=== PATIENT | male | born 1945 | race Two or more races ===

== ENCOUNTER 2024-09-03 08:50 | Inpatient (IN) | payer OTHER ==
[~2024-09-03] VITALS: Ht 175.3 cm; Wt 67.3 kg
--- NOTE | 2024-09-03 09:06 | ED.PDOC ---
History of Present Illness HPI Comments 78Y M with PMHx liver CA presents to ED for chief complaint abnormal labs. Pt states he had blood drawn yesterday and later in the evening received a call from doctor's office stating that his K+ was 6.0 and Calcium was 13.5. Pt has been feeling fatigued for 2 months and says he becomes very tired after walking 50 steps. Pt is currently undergoing chemotherapy for liver CA that has metastasized to the multiple bone sites (scapula, clavicle, femur, spine, etc). Time Seen by MD: 08:58 Reviewed Notes: Medications, Allergies Information Source: Patient, Spouse Mode of Arrival: Ambulatory Severity: Moderate Timing: Months Duration: Since onset Past Medical History PAST MEDICAL HISTORY: Cancer, CKF Surgical History: Unknown Family History Family History: Unknown Social History Smoker: Non-Smoker Alcohol: Denies ETOH Use Drugs: Denies Drug Use Lives In: Home Constitutional: reports: fatigue; denies: chills, diaphoresis, fever, malaise, sweats, weakness, others EENTM: denies: blurred vision, double vision, ear bleeding, ear discharge, ear drainage, ear pain, ear ringing, eye pain, eye redness, hearing loss, mouth pain, mouth swelling, nasal discharge, nose bleeding, nose congestion, nose pain, photophobia, tearing, throat pain, throat swelling, voice changes, others Respiratory: denies: cough, hemoptysis, orthopnea, SOB at rest, shortness of breath, SOB with excertion, stridor, wheezing, others Cardiovascular: denies: chest pain, dizzy spells, diaphoresis, Dyspnea on exertion, edema, irregular heart beat, left arm pain, lightheadedness, palpitations, PND, syncope, others Gastrointestinal: denies: abdomen distended, abdominal pain, blood streaked bowels, constipated, diarrhea, dysphagia, difficulty swallowing, hematemesis, melena, nausea, poor appetite, poor fluid intake, rectal bleeding, rectal pain, vomiting, others Genitourinary: denies: burning, dysuria, flank pain, frequency, hematuria, incontinence, penile discharge, penile sore, pain, testicle pain, testicle swelling, urgency, others Neurological: denies: dizziness, fainting, headache, left sided numbness, left sided weakness, numbness, paresthesia, pre-existing deficit, right sided numbness, right sided weakness, seizure, speech problems, tingling, tremors, weakness, others Musculoskeletal: denies: back pain, gout, joint pain, joint swelling, muscle pain, muscle stiffness, neck pain, others Integumetry: denies: bruises, change in color, change in hair/nails, dryness, laceration, lesions, lumps, rash, wounds, others Allergic/Immunocompromised: denies: Difficulty Healing, Frequent Infections, Hives, Itching, others Hematologic/Lymphatic: denies: anemia, blood clots, easy bleeding, easy bruising, swollen glands, others Endocrine: denies: excessive hunger, excessive sweating, excessive thirst, excessive urination, flushing, intolerance to cold, intolerance to heat, unexplained weight gain, unexplained weight loss, others Psychiatric: denies: anxiety, bipolar disorder, depression, hopeless, panic disorder, schizophrenia, sleepless, suicidal, others All Other Systems: Reviewed and Negative Physical Exam General Appearance: No Apparent Distress, Normal HEENT: Normal ENT Inspection, Pharynx Normal, TMs Normal Neck: Full Range of Motion, Non-Tender, Normal, Normal Inspection Respiratory: Chest Non-Tender, Lungs Clear, No Accessory Muscle Use, No Respiratory Distress, Normal Breath Sounds Cardiovascular: No Edema, No JVD, No Murmur, No Gallop, Normal Peripheral Pulses, Regular Rate/Rhythm Breast Exam: Deferred Gastrointestinal: No Organomegaly, Non Tender, No Pulsatile Mass, Normal Bowel Sounds, Soft Genitalia: Deferred Pelvic: Deferred Rectal: Deferred Extremities: No calf tenderness, Normal capillary refill, Normal inspection, Normal range of motion, Non-tender, No pedal edema Musculoskeletal : Apperance: Normal Neurologic: Alert, thread pulling machine attendant II-XII nml as Tested, No Motor Deficits, Normal Affect, Normal Mood, No Sensory Deficits Cerebellar Function: Normal Reflexes: Normal Skin: Dry, Normal Color, Warm Lymphatic: No Adenopathy Was a procedure done? Was a procedure done?: No Differential Dx Considerations may include: hypercalcemia, renal failure, dehydration, hyperkalemia, hyperparathyroidism, milk alkali syndrome, paraneoplastic syndrome X-Ray, Labs, Meds, VS Vital Signs Date Time Temp Pulse Resp B/P (MAP) Pulse Ox O2 Delivery O2 Flow Rate FiO2 09/03/24 10:57 97.9 90 16 124/73 (90) 98 97.9 09/03/24 10:56 90 16 98 Room Air 09/03/24 09:13 105 09/03/24 09:12 97.4 117 18 193/88 (123) 98 Lab Test 09/03/24 09:30 Range/Units White Blood Count 10.7 4.4-10.8 10^3/uL Red Blood Count 4.71 4.5-5.90 10^6/uL Hemoglobin 13.3 L 13.5-17.5 g/dL Hematocrit 39.9 L 41.0-53.0 % Mean Corpuscular Volume 84.6 80.0-100.0 fL Mean Corpuscular Hemoglobin 28.1 28.0-32.0 pg Mean Corpuscular Hemoglobin Concent 33.3 32.0-36.0 g/dL Red Cell Distribution Width 16.6 H 11.8-14.3 % Platelet Count 162 140-450 10^3/uL Mean Platelet Volume 8.0 6.9-10.8 fL Neutrophils (%) (Auto) 83.8 H 37.0-80.0 % Lymphocytes (%) (Auto) 5.9 L 10.0-50.0 % Monocytes (%) (Auto) 9.9 0.0-12.0 % Eosinophils (%) (Auto) 0.3 0.0-7.0 % Basophils (%) (Auto) 0.1 0.0-2.0 % Neutrophils # (Auto) 9.0 H 1.6-8.6 10 ^3/uL Lymphocytes # (Auto) 0.6 0.4-5.4 10 ^3/uL Monocytes # (Auto) 1.1 0-1.3 10 ^3/uL Eosinophils # (Auto) 0 0-0.8 10 ^3/uL Basophils # (Auto) 0 0-0.2 10 ^3/uL Nucleated Red Blood Cells 0.1 % Sodium Level 135 L 136-145 mmol/L Potassium Level 5.1 3.5-5.1 mmol/L Chloride Level 106 98-107 mmol/L Carbon Dioxide Level 21 20-31 mmol/L Anion Gap 8 5-15 Blood Urea Nitrogen 28 H 9-23 mg/dL Creatinine 1.41 H 0.700-1.30 mg/dL Glomerular Filtration Rate Calc 52 >90 mL/min BUN/Creatinine Ratio 19.9 10.0-20.0 Serum Glucose 148 H 74-106 mg/dL Calcium Level 13.5 *H 8.7-10.4 mg/dL Total Bilirubin 0.9 0.2-1.0 mg/dL Aspartate Amino Transferase (AST) 63 H 13-40 U/L Alanine Aminotransferase (ALT) 64 H 7-40 U/L Alkaline Phosphatase 578 H 46-116 U/L Total Protein 6.5 5.7-8.2 g/dL Albumin 4.1 3.2-4.8 g/dL Time of 1ST Reevaluation: 09:28 Reevaluation 1ST: Unchanged Time of 2ND Reevaluation: 12:04 Reevaluation 2ND: Unchanged Patient Education/Counseling: Diagnosis, Treatment, Prognosis, Need For Follow Up Family Education/Counseling: Diagnosis, Treatment, Prognosis, Need For Follow Up Additional Information Tests ordered and results reviewed: CBC, CMP Independent historians include: Spouse. Dr. Mast interpreted each of the tests and agrees with the result. Results and treatment discussed with the pt/family members and medical personnel. pt has symptomatic hypercalcemia. his calcium is just shy of 14, so he will need admission, monitoring for worsening, and arrhythmias, and need ivf Departure 1 Departure Time of Disposition: 12:07 Impression: Primary Impression: Hypercalcemia of malignancy Additional Impression: Generalized weakness Disposition: ADMITTED INPATIENT Admit to: Tele Condition: Serious Critical Care Note Critical Care Time?: Yes (45 min-critical care time only) Critical care comment: due to the real possibility of patient's condition deteriorating, his care requires my highest attention and readiness to intervene. i assessed the patient, ordered the proper tests and treatments, reassessed him for response, formulated a plan, discussed it with medical personnel, and consultants,. total time include more than 50% face to face contact and does not include any procedures. 45 minutes of cc time Stability Stability form required: No I personally scribed for CURT MAST MD ([email or web address]) on 09/03/24 at 09:06. Electronically submitted by Floresita Andujar ([email or web address]). CURT MAST MD Sep 03, 2024 09:06
[2024-09-03 09:58] LABS: Basophils # (auto) 0 10 ^3/uL (0-0.2); Basophils % (auto) 0.1 % (0.0-2.0); Eosinophils # (auto) 0 10 ^3/uL (0-0.8); Eosinophils % (auto) 0.3 % (0.0-7.0); Hematocrit 39.9 % (41.0-53.0); Hemoglobin 13.3 g/dL (13.5-17.5); Lymphocytes # (auto) 0.6 10 ^3/uL (0.4-5.4); Lymphocytes % (auto) 5.9 % (10.0-50.0); Mean Corpuscular Hemoglobin 28.1 pg (28.0-32.0); Mean Corpuscular Hgb Conc. 33.3 g/dL (32.0-36.0); Mean Corpuscular Volume 84.6 fL (80.0-100.0); Monocytes # (auto) 1.1 10 ^3/uL (0-1.3); Monocytes % (auto) 9.9 % (0.0-12.0); Neutrophils % (auto) 83.8 % (37.0-80.0); Nucleated Red Blood Cells % 0.1 %; Platelet Count (auto) 162 10^3/uL (140-450); Red Blood Cells 4.71 10^6/uL (4.5-5.90); Red Cell Distribution Width 16.6 % (11.8-14.3); White Blood Cell 10.7 10^3/uL (4.4-10.8)
[2024-09-03 10:13] LABS: Alanine Aminotransferase 64 U/L (7-40); Albumin 4.1 g/dL (3.2-4.8); Alkaline Phosphatase 578 U/L (46-116); Anion Gap 8 (5-15); Aspartate Aminotransferase 63 U/L (13-40); BUN/Creatinine Ratio 19.9 (10.0-20.0); Bilirubin, Total 0.9 mg/dL (0.2-1.0); Blood Urea Nitrogen 28 mg/dL (9-23); Carbon Dioxide 21 mmol/L (20-31); Chloride 106 mmol/L (98-107); Glucose 148 mg/dL (74-106); Potassium 5.1 mmol/L (3.5-5.1); Sodium 135 mmol/L (136-145); Total Protein 6.5 g/dL (5.7-8.2)
[2024-09-03 10:22] LABS: Calcium 13.5 mg/dL (8.7-10.4)
--- NOTE | 2024-09-03 12:04 | ECG ---
[facility] Test Date: 2024-09-03 Test Time: 09:13:02 Pat Name: JOSE DAVID HOGAN Department: ER Room: 0247 Gender: M Community Organization Aide: PAUL : 1945 Requested By: CURT ARRIAGA Order Number: [id number] Reading MD: Will Beckford Measurements Intervals [place] Rate: 105 P: -11 [place]: 173 QRS: -45 QRSD: 97 T: 113 QT: 320 QTc: 423 Interpretive Statements Sinus tachycardia Left anterior fascicular block Abnormal R-wave progression, late transition LVH with secondary repolarization abnormality Electronically Signed On 09-06-2024 8:20:14 PST by Will Beckford Please click the below link to view image of tracing.
[2024-09-03] MEDS ORDERED: MAALOX PLUS or MAALOX 30 ML PO PRN (13:15)
[2024-09-03] MEDS ORDERED: ACETAMINOPHEN 325 MG TAB PO PRN (13:15)
[2024-09-03] MEDS ORDERED: ONDANSETRON HCL 4 MG/2 ML VIAL IV PRN (13:15)
[2024-09-03] MEDS ORDERED: DOCUSATE SOD 100 MG CAP PO PRN (13:15)
[2024-09-03] MEDS ORDERED: LORazepam 0.5 MG TAB PO PRN (13:15)
--- NOTE | 2024-09-03 15:47 | DVHHP2 ---
History of Present Illness Reason for Visit: General weakness History of Present Illness 78 yo with history of cancer and ckd came in for worsening general weakness and abnormal labs outpatient with severe hypercalcemia patient recommended for admission for further evaluation Renal/: Chronic renal insuff Family History: Cancer Review of Systems Constitutional: Yes: Weakness; No: Fever, Chills, Sweats, Malaise, Other Eyes: No: Pain, Vision change, Conjunctivae inflammation, Eyelid inflammation, Other, Redness ENT: No: Ear pain, Ear discharge, Nose pain, Nose discharge, Nose congestion, Mouth pain, Mouth swelling, Throat pain, Throat swelling, Other Respiratory: No: Cough, Dry, Shortness of breath, SOB with excertion, Wheezing, Hemoptysis, Pleuritic Pain, Sputum, Wheezing, Other Cardiovascular: No: Chest Pain, Palpitations, Orthopnea, Paroxysmal Noc. Dyspnea, Edema, Lt Headedness, Other Gastrointestinal: Abdominal Pain; No: Nausea, Vomiting, Diarrhea, Constipation, Melena, Hematochezia, Other Genitourinary: No Dysuria, No Frequency, No Incontinence, No Hematuria, No Retention, No Other Musculoskeletal: No: other, neck pain, shoulder pain, arm pain, back pain, hand pain, leg pain, foot pain Skin: No: Rash, Lesions, Jaundice, Bruising, Other Neurological: No: Weakness, Numbness, Incoordination, Change in speech, Confusion, Seizures, Other Allergies: Coded Allergies: NO KNOWN ALLERGIES (Unverified , 09/03/24) Medications Current Medications Medications Dose Ordered Sig/Stuart Route Start Time Stop Time Status Last Admin Dose Admin Lorazepam 0.5 mg Q6HP PRN PO 09/03/24 13:15 Al Hydrox/Mg Hydrox/Simethicone 30 ml Q6HP PRN PO 09/03/24 13:15 Docusate Sodium 100 mg BIDPRN PRN PO 09/03/24 13:15 Acetaminophen 650 mg Q6HP PRN PO 09/03/24 13:15 Acetaminophen/ Hydrocodone Bitart 1 tab Q4HP PRN PO 09/03/24 13:15 Ondansetron HCl 4 mg Q4HP PRN IV 09/03/24 13:15 Morphine Sulfate 2 mg Q4HPRN PRN IV 09/03/24 13:15 Exam Vital Signs Vital Signs Date Time Temp Pulse Resp B/P (MAP) Pulse Ox O2 Delivery O2 Flow Rate FiO2 09/03/24 12:52 80 17 134/63 (86) 98 09/03/24 10:57 97.9 97.9 09/03/24 10:56 Room Air General Appearance: Alert, Oriented X3 HEENT: Atraumatic, PERRLA Respiratory: Clear to auscultation Cardiovascular: Regular rate, Normal S1 Abdominal: Normal bowel sounds Extremities: No clubbing, No cyanosis Skin: No rashes, No breakdown Neuro: Normal gait, Normal speech Psych/Mental Status: Mood NL Labs/Xrays Labs Test 09/03/24 09:30 Range/Units White Blood Count 10.7 4.4-10.8 10^3/uL Red Blood Count 4.71 4.5-5.90 10^6/uL Hemoglobin 13.3 L 13.5-17.5 g/dL Hematocrit 39.9 L 41.0-53.0 % Mean Corpuscular Volume 84.6 80.0-100.0 fL Mean Corpuscular Hemoglobin 28.1 28.0-32.0 pg Mean Corpuscular Hemoglobin Concent 33.3 32.0-36.0 g/dL Red Cell Distribution Width 16.6 H 11.8-14.3 % Platelet Count 162 140-450 10^3/uL Mean Platelet Volume 8.0 6.9-10.8 fL Neutrophils (%) (Auto) 83.8 H 37.0-80.0 % Lymphocytes (%) (Auto) 5.9 L 10.0-50.0 % Monocytes (%) (Auto) 9.9 0.0-12.0 % Eosinophils (%) (Auto) 0.3 0.0-7.0 % Basophils (%) (Auto) 0.1 0.0-2.0 % Neutrophils # (Auto) 9.0 H 1.6-8.6 10 ^3/uL Lymphocytes # (Auto) 0.6 0.4-5.4 10 ^3/uL Monocytes # (Auto) 1.1 0-1.3 10 ^3/uL Eosinophils # (Auto) 0 0-0.8 10 ^3/uL Basophils # (Auto) 0 0-0.2 10 ^3/uL Nucleated Red Blood Cells 0.1 % Sodium Level 135 L 136-145 mmol/L Potassium Level 5.1 3.5-5.1 mmol/L Chloride Level 106 98-107 mmol/L Carbon Dioxide Level 21 20-31 mmol/L Anion Gap 8 5-15 Blood Urea Nitrogen 28 H 9-23 mg/dL Creatinine 1.41 H 0.700-1.30 mg/dL Glomerular Filtration Rate Calc 52 >90 mL/min BUN/Creatinine Ratio 19.9 10.0-20.0 Serum Glucose 148 H 74-106 mg/dL Calcium Level 13.5 *H 8.7-10.4 mg/dL Total Bilirubin 0.9 0.2-1.0 mg/dL Aspartate Amino Transferase (AST) 63 H 13-40 U/L Alanine Aminotransferase (ALT) 64 H 7-40 U/L Alkaline Phosphatase 578 H 46-116 U/L Total Protein 6.5 5.7-8.2 g/dL Albumin 4.1 3.2-4.8 g/dL Assessment/Plan Assessment/Plan Admit Med/Surge General Weakness Hypercalcemia of malignancy iv hydration supportive management calcitonin 400 unit sc bid diet po intake as tolerated CKD history noted possible osman on ckd iv hydration repeat labs Plan discussed with: Patient My Orders Orders - ROSIBEL MIN MD Procedure Category Date Status Time Admit ADMIT 09/03/24 Transmitted 13:08 Code Status CODE 09/03/24 Transmitted 13:08 Vital Signs [facility] 09/03/24 In Process 13:08 Review Orders With JONNY 09/03/24 In Process . 13:08 Regular Diet DIET 09/03/24 Transmitted Lunch Lorazepam Tablet [facility] 09/03/24 In Process (Ativan Tablet) 13:15 Alum & Mag PHA 09/03/24 In Process Hydrox-Simethicone 13:15 Docusate Sodium PHA 09/03/24 In Process Capsule (Colace 13:15 Acetaminophen Tablet PHA 09/03/24 In Process (Tylenol Tablet) 13:15 Notify Of Changes [facility] 09/03/24 In Process From Base 13:08 Advance Directive [facility] 09/03/24 In Process 13:08 Basic Metabolic Panel LAB 09/04/24 Verified 04:00 Complete Blood Count LAB 09/04/24 Verified 04:00 Patient Condition ORDERS 09/03/24 Transmitted 13:08 Allergies [facility] 09/03/24 In Process 13:08 Hydrocodone-Acet PHA 09/03/24 In Process 5/325mg Tab ([place] 13:15 Ondansetron Hcl PHA 09/03/24 In Process (Zofran) 13:15 Morphine Sulfate PHA 09/03/24 In Process Injection 13:15 Notify Md Of Changes [facility] 09/03/24 In Process From Base 13:08 Chip Frier For [facility] 09/03/24 In Process 24 Hours 13:08 Emergency Dysrhythmia [facility] 09/03/24 In Process Protocol 13:08 Rhythm Strips Once [facility] 09/03/24 In Process Every Shift 13:08 Oxygen By Nasal RT 09/03/24 Transmitted Cannula 13:08 Calcitonin Injectable PHA 09/03/24 Logged (Miacalcin Injecta 22:00 Sodium Zirconium PHA 09/03/24 Verified Cyclosilicate 15:30 Furosemide Injection PHA 09/03/24 Verified (Lasix Injection) 15:17 Problem List: (1) Generalized weakness (2) Hypercalcemia of malignancy Date of Service: Sep 03, 2024 Billing Provider: ROSIBEL MIN MD Common Visit Codes: [id number] INP/OBS CARE (HIGH) ROSIBEL MIN MD Sep 03, 2024 15:47
[2024-09-03 16:14] VITALS: PULSE 80; RESP 17; O2SAT 95
[2024-09-03 16:19] VITALS: BP 131/68; PULSE 67; RESP 18; TEMP 97.6; O2SAT 96
[2024-09-03 16:30] VITALS: BP 131/68; PULSE 67; RESP 18; TEMP 97.6; O2SAT 96
[2024-09-03] MEDS: SODIUM ZIRCONIUM CYCL 10 GM PAK PO SCH (17:33)
[2024-09-03] MEDS: FUROSEMIDE 20 MG/2 ML VIAL IV STA (17:33)
[2024-09-03] MEDS: HYDROcodone-ACET 5/325MG TAB PO PRN (17:35)
[2024-09-03 20:00] VITALS: RESP 17; O2SAT 95
[2024-09-03 21:00] VITALS: BP 122/60; PULSE 84; RESP 18; TEMP 97.9; O2SAT 96
[2024-09-03] MEDS: CALCITONIN 400unit/2ml Vial (200unit/ml) SC SCH (22:37)
[2024-09-03] MEDS: SODIUM CHLORIDE 0.9% 1,000 ML IV ONE (22:56)
[2024-09-03] MEDS ORDERED: OXY5T GT (23:42)
[2024-09-03] MEDS ORDERED: [UNRECOGNIZED DRUG - CODE] IJ (23:42)
[2024-09-03] MEDS ORDERED: OXAL50IN IV (23:42)
[2024-09-03] MEDS ORDERED: LOSA-535 PO (23:42)
[2024-09-03] MEDS ORDERED: PROP1TAB51 PO (23:42)
[2024-09-03] MEDS ORDERED: SPIR50TA5 PO (23:42)
[2024-09-03] MEDS ORDERED: DEXA4TAB PO (23:42)
[2024-09-03] MEDS ORDERED: OMEP20TA PO (23:42)
[2024-09-03] MEDS ORDERED: FLUO5CRE EX (23:42)
[2024-09-03] MEDS ORDERED: DENOINJ SC (23:42)
[2024-09-03] MEDS ORDERED: AMLO1TAB22 PO (23:42)
[2024-09-04 05:00] VITALS: BP 124/74; PULSE 81; RESP 18; TEMP 97.8; O2SAT 96
[2024-09-04 06:30] LABS: Basophils # (auto) 0 10 ^3/uL (0-0.2); Basophils % (auto) 0.2 % (0.0-2.0); Eosinophils # (auto) 0 10 ^3/uL (0-0.8); Eosinophils % (auto) 0.4 % (0.0-7.0); Hematocrit 35.1 % (41.0-53.0); Hemoglobin 12.1 g/dL (13.5-17.5); Lymphocytes # (auto) 0.8 10 ^3/uL (0.4-5.4); Lymphocytes % (auto) 10.5 % (10.0-50.0); Mean Corpuscular Hgb Conc. 34.4 g/dL (32.0-36.0); Mean Corpuscular Volume 84.2 fL (80.0-100.0); Monocytes # (auto) 0.9 10 ^3/uL (0-1.3); Monocytes % (auto) 11.7 % (0.0-12.0); Neutrophils # (auto) 5.9 10 ^3/uL (1.6-8.6); Neutrophils % (auto) 77.2 % (37.0-80.0); Platelet Count (auto) 122 10^3/uL (140-450); Red Blood Cells 4.17 10^6/uL (4.5-5.90); Red Cell Distribution Width 16.4 % (11.8-14.3); White Blood Cell 7.7 10^3/uL (4.4-10.8)
[2024-09-04 06:38] LABS: Anion Gap 7 (5-15); Carbon Dioxide 22 mmol/L (20-31); Chloride 107 mmol/L (98-107); Potassium 4.8 mmol/L (3.5-5.1); Sodium 136 mmol/L (136-145)
[2024-09-04 06:39] LABS: Calcium 12.4 mg/dL (8.7-10.4)
[2024-09-04 06:44] LABS: BUN/Creatinine Ratio 22.1 (10.0-20.0); Blood Urea Nitrogen 25 mg/dL (9-23); Glucose 96 mg/dL (74-106)
[2024-09-04 08:32] LABS: Alanine Aminotransferase 60 U/L (7-40); Albumin 3.4 g/dL (3.2-4.8); Alkaline Phosphatase 530 U/L (46-116); Aspartate Aminotransferase 62 U/L (13-40); Bilirubin, Direct 0.4 mg/dL (<0.3); Bilirubin, Total 0.8 mg/dL (0.2-1.0); Blood Alcohol < 3.0 mg/dL (<10); Total Protein 5.2 g/dL (5.7-8.2)
[2024-09-04 08:38] LABS: INR 1.07 (0.9-1.15); Partial Thromboplastin Time 23.8 SEC (24.5-34.5); Prothrombin Time 11.3 sec (9.3-11.8)
[2024-09-04 08:53] VITALS: BP 130/72; PULSE 83; RESP 17; TEMP 97.4; O2SAT 97
[2024-09-04] MEDS: Ensure HIGH Protein Chocolate 8oz Bottle PO SCH (12:30)
[2024-09-04 13:00] VITALS: BP 134/72; PULSE 91; RESP 16; TEMP 97.3; O2SAT 97
--- NOTE | 2024-09-04 13:09 | DVHPNRES ---
Progress Note Date Seen: Sep 04, 2024 Resident Creating Document: VERENICE GILL RESIDENT Medical Necessity Reason Pt with a Central, PICC or Fol: No Subjective Review of Systems JOSE DAVID HOGAN a 78 years old male with a PMH of CKD and liver carcinoma presented to the ED with the chief complaints of generalized weakness and abnormal labs. Patient reported he has been diagnosed as liver carcinoma 2.5 months ago, currently undergoing chemotherapy in [facility]. Patient reported since he has been diagnosed with cancer his calcium is always highband he has been taking denosumab. Patient received call from [facility] due to high calcium, the contact [facility], they advised hospital admission for further evaluation. on my assessment patient reported increased urination, muscle weakness, drowsiness, fatty but no fever, chills, diarrhea, chest pain, abdominal pain and other associated symptoms. PMH: CKD and liver carcinoma PSH: Denies Family history: Cancer in families Social history: Lives with family. Denies smoking, alcohol and other drug abuse Allergies: No known allergies Patient seen and examined at the bedside. Patient reported mild improvement in his symptoms since admission. continuously monitoring lab, currently giving calcitonin. Contacting [facility] of for medical records for possible treatment. Patient reports: Feels better Objective vital signs Vital Sign Date Time Temp Pulse Resp B/P (MAP) Pulse Ox O2 Delivery O2 Flow Rate FiO2 09/04/24 08:53 97.4 83 17 130/72 (91) 97 97.4 09/04/24 08:00 Room Air* 0 21 Total Intake and Output 09/03/24 09/03/24 09/04/24 15:00 23:00 07:00 Intake Total 1500 ml Output Total 400 ml Balance 1100 ml medications Current Medications Medications Dose Ordered Sig/Stuart Route Start Time Stop Time Status Last Admin Dose Admin Lorazepam 0.5 mg Q6HP PRN PO 09/03/24 13:15 Al Hydrox/Mg Hydrox/Simethicone 30 ml Q6HP PRN PO 09/03/24 13:15 Docusate Sodium 100 mg BIDPRN PRN PO 09/03/24 13:15 Acetaminophen 650 mg Q6HP PRN PO 09/03/24 13:15 Acetaminophen/ Hydrocodone Bitart 1 tab Q4HP PRN PO 09/03/24 13:15 09/03/24 17:35 1 TAB Ondansetron HCl 4 mg Q4HP PRN IV 09/03/24 13:15 Morphine Sulfate 2 mg Q4HPRN PRN IV 09/03/24 13:15 Calcitonin [place] 400 unit BID SC 09/03/24 22:00 09/04/24 10:27 400 UNIT Zirconium Oxide 10 gm DAILY PO 09/03/24 15:30 09/04/24 10:20 10 GM Enteral Nutritional Formula 240 ml BIDWM PO 09/04/24 12:30 Examination Pt is lying on bed General Appearance: Alert, Oriented X3, Cooperative, mild distress HEENT: Atraumatic, Mucous membranes moist/pink Respiratory: Clear to auscultation, Normal air movement, No added sounds Cardiovascular: Regular rate, Normal S1, Normal S2, No murmurs Abdominal: Active bowel sounds, Soft, no distention, no tenderness Extremities: No edema, Normal pulses, No tenderness/swelling Skin: No Significant rash, except past surgical scars Neuro: Normal speech, sensorimotor deficits none Psych/Mental Status: Mental status NL, Mood NL Nurse was there as sharperone during examination laboratory and microbiology Laboratory Tests 09/04/24 05:57 Test 09/04/24 05:57 Range/Units Serum Glucose 96 74-106 mg/dL Labs and/or images reviewed: Labs reviewed by me, Image(s) reviewed by me Problem List/Assessment/Plan Problem List/Assessment/Plan # Symptomatic severe hypercalcemia - continuously monitor calcium - currently in giving calcitonin # mild hyperkalemia - given Lokelma - monitoring lab # liver carcinoma with metastasis to bone # transaminitis # hypercoagulable state - continue ongoing treatment from [facility] # DAVY likely VMN on CKD - monitor lab SCDs for now Maalox regular diet reconciled home meds goals of care discussed with the patient and family for more than 27 minutes: Full code status Case management discussed with Dr Spence, patient and nurse Plan discussed with: Patient My Orders My Orders Orders - VERENICE GILL RESIDENT Procedure Category Date Status Time Vitamin D, 25-Hydroxy LAB 09/04/24 In Process 08:05 Vitamin B12 LAB 09/04/24 In Process 08:05 Urinalysis LAB 09/04/24 Logged 08:05 Drug Screen LAB 09/04/24 Logged 08:05 * Hall Worker CONS 09/04/24 Transmitted Consult Nutritional PHA 11/24/24 In Process Supplements (Ensure 12:30 Basic Metabolic Panel LAB 09/04/24 Logged 14:17 Date of Service: Sep 04, 2024 Billing Provider: LILLIAN SPENCE MD Common Visit Codes: [id number] INP/OBS CARE(HIGH) VERENICE GILL RESIDENT Sep 04, 2024 13:09 LILLIAN SPENCE MD Sep 04, 2024 21:23
[2024-09-04 13:38] LABS: Urine Bacteria None Seen /hpf (None Seen)
[2024-09-04 13:46] LABS: Urine Blood Negative /uL (Negative); Urine Clarity Clear (Clear); Urine Color Light-Yellow (Yellow); Urine Protein, UAD Negative (Negative); Urine Specific Gravity 1.014 (1.001-1.035); Urine Urobilinogen 2 mg/dL (Negative); Urine WBC <1 /hpf (0 - 3); Urine pH 7.5 (5.0-9.0)
[2024-09-04 14:12] LABS: Amphetamine Screen, Urine Neg (NEGATIVE); Barbiturate Scree,Urine Neg (NEGATIVE); Benzodiazephine Screen, Urine Neg (NEGATIVE); Cocaine Screen, Urine Neg (NEGATIVE); Opiate Scree,Urine Neg (NEGATIVE)
[2024-09-04 14:13] LABS: Cannabinoid Screen, Urine Pos (NEGATIVE); Phencyclidine Screen, Urine Neg (NEGATIVE)
[2024-09-04 15:36] LABS: Chloride 108 mmol/L (98-107); Potassium 4.4 mmol/L (3.5-5.1); Sodium 136 mmol/L (136-145)
[2024-09-04 15:37] LABS: Anion Gap 6 (5-15); Carbon Dioxide 22 mmol/L (20-31)
[2024-09-04 15:38] LABS: Calcium 12.6 mg/dL (8.7-10.4)
[2024-09-04 15:42] LABS: BUN/Creatinine Ratio 21.1 (10.0-20.0); Blood Urea Nitrogen 23 mg/dL (9-23); Glucose 106 mg/dL (74-106)
[2024-09-04 17:00] VITALS: BP 139/82; PULSE 85; RESP 17; TEMP 98.3; O2SAT 98
[2024-09-04] MEDS: FUROSEMIDE 40 MG/4 ML VIAL IV SCH (17:50)
[2024-09-04] MEDS: SODIUM CHLORIDE 0.9% 1,000 ML IV SCH (17:50)
[2024-09-04 20:00] VITALS: RESP 17; O2SAT 95
[2024-09-04 21:00] VITALS: BP 131/66; PULSE 96; RESP 17; TEMP 97.8; O2SAT 96
[2024-09-04] MEDS: MORPHINE SULFATE INJ 2 MG/ml SYRG IV PRN (21:43)
[2024-09-05 05:00] VITALS: BP 148/86; PULSE 95; RESP 18; TEMP 98.7; O2SAT 96
[2024-09-05 07:33] LABS: Basophils # (auto) 0 10 ^3/uL (0-0.2); Basophils % (auto) 0.2 % (0.0-2.0); Eosinophils # (auto) 0 10 ^3/uL (0-0.8); Eosinophils % (auto) 0.1 % (0.0-7.0); Hematocrit 36.7 % (41.0-53.0); Hemoglobin 12.4 g/dL (13.5-17.5); Lymphocytes # (auto) 0.9 10 ^3/uL (0.4-5.4); Mean Corpuscular Hemoglobin 28.5 pg (28.0-32.0); Mean Corpuscular Hgb Conc. 33.7 g/dL (32.0-36.0); Mean Corpuscular Volume 84.6 fL (80.0-100.0); Monocytes % (auto) 10.8 % (0.0-12.0); Neutrophils # (auto) 7.7 10 ^3/uL (1.6-8.6); Neutrophils % (auto) 79.9 % (37.0-80.0); Platelet Count (auto) 131 10^3/uL (140-450); Red Blood Cells 4.33 10^6/uL (4.5-5.90); Red Cell Distribution Width 15.9 % (11.8-14.3); White Blood Cell 9.6 10^3/uL (4.4-10.8)
[2024-09-05 07:35] LABS: Calcium 12.4 mg/dL (8.7-10.4); Chloride 106 mmol/L (98-107); Potassium 4.3 mmol/L (3.5-5.1); Sodium 136 mmol/L (136-145)
[2024-09-05 07:36] LABS: Anion Gap 9 (5-15); Carbon Dioxide 21 mmol/L (20-31)
[2024-09-05 07:41] LABS: BUN/Creatinine Ratio 23.3 (10.0-20.0); Blood Urea Nitrogen 24 mg/dL (9-23); Glucose 112 mg/dL (74-106)
[2024-09-05 09:00] VITALS: BP 143/76; PULSE 85; RESP 16; TEMP 97.3; O2SAT 96
[2024-09-05 12:45] LABS: Anion Gap 8 (5-15); Carbon Dioxide 22 mmol/L (20-31); Chloride 105 mmol/L (98-107); Potassium 4.2 mmol/L (3.5-5.1); Sodium 135 mmol/L (136-145)
[2024-09-05 12:46] LABS: Calcium 12.4 mg/dL (8.7-10.4)
[2024-09-05 12:50] LABS: Glucose 106 mg/dL (74-106)
[2024-09-05 12:51] LABS: BUN/Creatinine Ratio 23.1 (10.0-20.0); Blood Urea Nitrogen 24 mg/dL (9-23)
[2024-09-05 13:00] VITALS: BP 132/77; PULSE 94; RESP 16; TEMP 97.8; O2SAT 96
[2024-09-05] MEDS ORDERED: FURO20TA3 PO (14:02)
[2024-09-05] MEDS ORDERED: GICOCKTAIL PO (14:02)
[2024-09-05] MEDS ORDERED: NUTR-559 PO (14:02)
--- NOTE | 2024-09-05 15:42 | DVHDSRES ---
Discharge Summary Date of Admission Resident Creating Document: VERENICE GILL RESIDENT Sep 03, 2024 at 13:08 Date of Discharge: Sep 05, 2024 Admitting Diagnosis Generalized weakness Labs/Diagnostic Data: Laboratory Results Test 09/05/24 12:29 09/05/24 06:39 09/04/24 13:37 09/04/24 05:57 Sodium Level 135 mmol/L (136-145) Potassium Level 4.2 mmol/L (3.5-5.1) Chloride Level 105 mmol/L (98-107) Carbon Dioxide Level 22 mmol/L (20-31) Anion Gap 8 (5-15) Blood Urea Nitrogen 24 mg/dL (9-23) Creatinine 1.04 mg/dL (0.700-1.30) Glomerular Filtration Rate Calc 74 mL/min (>90) BUN/Creatinine Ratio 23.1 (10.0-20.0) Serum Glucose 106 mg/dL (74-106) Calcium Level 12.4 mg/dL (8.7-10.4) White Blood Count 9.6 10^3/uL (4.4-10.8) Red Blood Count 4.33 10^6/uL (4.5-5.90) Hemoglobin 12.4 g/dL (13.5-17.5) Hematocrit 36.7 % (41.0-53.0) Mean Corpuscular Volume 84.6 fL (80.0-100.0) Mean Corpuscular Hemoglobin 28.5 pg (28.0-32.0) Mean Corpuscular Hemoglobin Concent 33.7 g/dL (32.0-36.0) Red Cell Distribution Width 15.9 % (11.8-14.3) Platelet Count 131 10^3/uL (140-450) Mean Platelet Volume 7.3 fL (6.9-10.8) Neutrophils (%) (Auto) 79.9 % (37.0-80.0) Lymphocytes (%) (Auto) 9.0 % (10.0-50.0) Monocytes (%) (Auto) 10.8 % (0.0-12.0) Eosinophils (%) (Auto) 0.1 % (0.0-7.0) Basophils (%) (Auto) 0.2 % (0.0-2.0) Neutrophils # (Auto) 7.7 10 ^3/uL (1.6-8.6) Lymphocytes # (Auto) 0.9 10 ^3/uL (0.4-5.4) Monocytes # (Auto) 1.0 10 ^3/uL (0-1.3) Eosinophils # (Auto) 0 10 ^3/uL (0-0.8) Basophils # (Auto) 0 10 ^3/uL (0-0.2) Nucleated Red Blood Cells 0.0 % Urine Color Light-yellow (Yellow) Urine Clarity Clear (Clear) Urine pH 7.5 (5.0-9.0) Urine Specific [place] 1.014 (1.001-1.035) Urine Protein Negative (Negative) Urine Ketones Negative (Negative) Urine Blood Negative /uL (Negative) Urine Nitrite Negative (Negative) Urine Bilirubin Negative (Negative) Urine Urobilinogen 2 mg/dL (Negative) Urine Leukocyte Esterase Negative /uL (Negative) Urine RBC 1 /hpf (0 - 3) Urine WBC <1 /hpf (0 - 3) Urine Squamous Epithelial Cells Few /hpf (<5) Urine Bacteria None seen /hpf (None Seen) Urine Glucose Normal mg/dL (Normal) Urine Opiates Screen Neg (NEGATIVE) Urine Fentanyl Screen Neg (NEGATIVE) Urine Barbiturates Screen Neg (NEGATIVE) Urine Phencyclidine Screen Neg (NEGATIVE) Urine Amphetamines Screen Neg (NEGATIVE) Urine Benzodiazepines Screen Neg (NEGATIVE) Urine Cocaine Screen Neg (NEGATIVE) Urine Cannabinoids Screen Pos (NEGATIVE) Prothrombin Time 11.3 sec (9.3-11.8) Prothrombin Time INR 1.07 (0.9-1.15) Activated Partial Thromboplast Time 23.8 SEC (24.5-34.5) Hemoglobin A1c 5.8 % A1C (<5.7) Total Bilirubin 0.8 mg/dL (0.2-1.0) Direct Bilirubin 0.4 mg/dL (<0.3) Aspartate Amino Transferase (AST) 62 U/L (13-40) Alanine Aminotransferase (ALT) 60 U/L (7-40) Alkaline Phosphatase 530 U/L (46-116) B-Type Natriuretic Peptide 47.09 pg/mL (0-100) Total Protein 5.2 g/dL (5.7-8.2) Albumin 3.4 g/dL (3.2-4.8) Thyroid Stimulating Hormone (TSH) 2.47 uIU/mL (0.55-4.78) Plasma/Serum Blood Alcohol < 3.0 mg/dL (<10) Other Laboratory Tests 09/05/24 12:29 09/05/24 06:39 Brief Hx & Hospital Course: JOSE DAVID HOGAN a 78 year old male with a PMH of CKD and liver carcinoma presented to the ED with the chief complaints of generalized weakness and abnormal labs. Patient reported he has been diagnosed as liver carcinoma 2.5 months ago, currently undergoing chemotherapy in [facility]. Patient reported since he has been diagnosed with cancer his calcium is always high and he has been taking denosumab. Patient received call from [place] due to high calcium, they contacted [facility], they advised hospital admission for further evaluation. on my assessment patient reported increased urination, muscle weakness, drowsiness, fatty but no fever, chills, diarrhea, chest pain, abdominal pain and other associated symptoms. Patient required hospital admission further evaluation and management of hypercalcemia. Continuously monitored lab. Patient was given calcitonin initially, later added Lasix and fluids. Calcium was trending down, contacted [facility] for medical records but unable to obtain. Due to hyperkalemia patient was given Lokelma discontinued spiranolactone. Patient's symptoms have been improved, hemodynamically stable and in condition to be discharged home. Patient was advised to follow up with [facility] for further management of hypercalcemia and liver cancer after the discharge. Pt is lying on bed General Appearance: Alert, Oriented X3, Cooperative, mild distress HEENT: Atraumatic, Mucous membranes moist/pink Respiratory: Clear to auscultation, Normal air movement, No added sounds Cardiovascular: Regular rate, Normal S1, Normal S2, No murmurs Abdominal: Active bowel sounds, Soft, no distention, no tenderness Extremities: No edema, Normal pulses, No tenderness/swelling Skin: No Significant rash, except past surgical scars Neuro: Normal speech, sensorimotor deficits none Psych/Mental Status: Mental status NL, Mood NL Nurse was there as raquelne during examination Condition at Discharge: Stable Final Diagnosis/Problems List # Symptomatic severe hypercalcemia # mild hyperkalemia # 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 Patient was counseled about treatment plan, medications, possible side effects, patientverbalized understanding. All questions were answered to the best of my ability. This discharge took greater then 30 minutes in planning, reviewing documentation, counseling the patient, and discussing with other team members." ASSESSMENT ASSESSMENT Assessment SEVERE HYPERCALCEMIA Date of Service: Sep 05, 2024 Billing Provider: LILLIAN WINKLER MD Common Visit Codes: 39773-XZL/[id number] DISCH DAY >30min VERENICE GILL RESIDENT Sep 05, 2024 15:42 LILLIAN WINKLER MD Sep 05, 2024 20:11
== END 2024-09-05 15:15 | disposition home or self-care (01) | DRG 640 ==
LOC: ER 08:50 → OVERFLOW 13:08 → EAST 16:30
PROVIDERS: ADMIT Student in an Organized Health Care Education/Training Program; ATTEND Student in an Organized Health Care Education/Training Program
DX: E83.52 Hypercalcemia (principal); N17.0 Acute kidney failure with tubular necrosis; C79.51 Secondary malignant neoplasm of bone; D68.59 Other primary thrombophilia; C22.7 Other specified carcinomas of liver; N18.9 Chronic kidney disease, unspecified; E87.5 Hyperkalemia; R74.01 Elevation of levels of liver transaminase levels; Z79.899 Other long term (current) drug therapy
CPT/HCPCS: 36415; 80048; 80053; 80076; 80307; 80320; 81001; 82306; 82607; 83036; 83880; 84443; 85025; 85610; 85730; 87081; 93005; 99291; G0378; J1642